=== PATIENT | female | born 1945 | race Caucasian/White ===

== ENCOUNTER 2018-06-26 13:19 | Inpatient (IN) | payer BC ==
[~2018-06-26] VITALS: Ht 167.6 cm; Wt 122.5 kg
[~2018-06-26 13:19] MED LIST: NOR10 PO
[2018-06-26 13:47] VITALS: BP_SYST 153
[2018-06-26 14:20] LABS: HEMATOCRIT 40.5 % (36-48); HEMOGLOBIN 13.2 g/dL (12.0-16.0); LYMPHOCYTES % (AUTO) 15.5 % (20.5-51.5); MEAN CORPUSCULAR HEMOGLOBIN 29 pg (27-31); MEAN CORPUSCULAR HGB CONC 33 % (32-36); MEAN CORPUSCULAR VOLUME 90 fL (79.0-98.0); MONOCYTES % (AUTO) 8.1 % (1.7-9.3); NEUTROPHILS % (AUTO) 73.3 % (40.0-70.0); PLATELET COUNT (AUTO) 231 K/uL (130-430); RED BLOOD CELL COUNT(AUTO) 4.52 MIL/uL (4.2-6.2); RED CELL DISTRIBUTION WIDTH 14.2 % (9.0-15.0); WHITE BLOOD COUNT (AUTO) 8.8 K/uL (4.8-10.8)
[2018-06-26 14:21] LABS: BASOPHILS # (AUTO) 0.1 K/uL (0.0-0.2); BASOPHILS % (AUTO) 0.7 % (0.0-2.0); EOSINOPHILS # (AUTO) 0.2 K/uL (0.0-0.4); EOSINOPHILS % (AUTO) 2.4 % (0.0-4.0); LYMPHOCYTES # (AUTO) 1.4 K/uL (1.0-5.5); MONOCYTES # (AUTO) 0.7 K/uL (0.0-1.0); NEUTROPHILS # (AUTO) 6.5 K/uL (1.8-7.7)
[2018-06-26 14:28] LABS: ANION GAP 8 (5-15); CALCIUM 8.7 mg/dL (8.4-11.0); CHLORIDE 90 mmol/L (98-107); CREATININE 1.75 mg/dL (0.55-1.30); SODIUM SERUM 124 mmol/L (136-145); UREA NITROGEN, BLOOD 29 mg/dL (8-21)
[2018-06-26 14:29] LABS: ALANINE AMINOTRANSFERASE 29 U/L (12-78); ALBUMIN 3.4 g/dL (3.4-4.8); ASPARTATE AMINOTRANSFERASE 19 U/L (10-37); PROTHROMBIN TIME 10.1 SECS (9.5-12.5); TOTAL BILIRUBIN 0.4 mg/dL (0.0-1.0)
[2018-06-26 14:32] LABS: POTASSIUM 5.8 mmol/L (3.5-5.1)
[2018-06-26 14:33] LABS: GLUCOSE 705 mg/dL (70-99)
--- NOTE | 2018-06-26 15:00 | NUR ---
Patient to ER bed 06 to gown for evaluation. Side rails up.
--- NOTE | 2018-06-26 15:05 | NUR ---
Pt brought by self,A&Ox4, pt presents to ER with vaginal bleeding , pt states she felt at the gym few days ago and started to notice blood in the urine/ vaginal are after, pt respirations even and unlabored, cap refill <3, skin pink and warm.
--- NOTE | 2018-06-26 15:08 | NUR ---
Pt notified of blood results per Dr Frederick,BS result 705 under BMP, per patient she is not diabetic, Per Dr Frederick labs will be repeated.
--- NOTE | 2018-06-26 15:10 | NUR ---
Dr Frederick at bedside examining patient
[2018-06-26 16:12] LABS: ANION GAP 10 (5-15); CALCIUM 8.7 mg/dL (8.4-11.0); CHLORIDE 90 mmol/L (98-107); CREATININE 1.69 mg/dL (0.55-1.30); POTASSIUM 5.3 mmol/L (3.5-5.1); SODIUM SERUM 122 mmol/L (136-145); UREA NITROGEN, BLOOD 29 mg/dL (8-21)
[2018-06-26 16:15] LABS: GLUCOSE 659 mg/dL (70-99)
[2018-06-26] MEDS ORDERED: NACL 0.9% 1,000 ML IV ONE (16:15)
--- NOTE | 2018-06-26 16:15 | NUR ---
Pt medicated for elevated potassium and glucose.
[2018-06-26] MEDS ORDERED: SODIUM POLYSTYRENE SULFONATE 15 GM/60 ML UDBTL PO ONE (16:30)
[2018-06-26] MEDS ORDERED: INSULIN REGULAR, HUMAN 10 UNITS/0.1 ML INJ IVP ONE (17:00)
--- NOTE | 2018-06-26 17:55 | NUR ---
BS 429 after IVP insulin.
--- NOTE | 2018-06-26 18:12 | NUR ---
ADMISSION NOTE Received patient from ER via artem, received report from FRANCE PRATHER. Patient admitted with diagnosis of HYPERGLYCEMIA/HEMATURIA. Patient oriented to hospital routine, call light, toileting and safety-patient verbalized understanding.
--- NOTE | 2018-06-26 18:15 | NUR ---
Patient will be admitted to care of . Admitted to Telemetry unit. Will go to room 103B. Summary report printed. Report will be given at bedside.
[2018-06-26 18:26] VITALS: BP_SYST 148
--- NOTE | 2018-06-26 18:44 | NUR ---
Mobility Ambulate to bathroom with steady gait, no dizziness, fall/safety precaution initiated, bed alarm , dinner served.
--- NOTE | 2018-06-26 18:47 | NUR ---
Initial Note: Received patient from ADN. Patient in bed eating dinner. Patient A/O x4. Patient denies pain and discomfort at this time. Breathing is even and unlabored with no distress noted. Palpable peripheral pulses. Patient ambulatory with steady gait. PERRLA present. Clear breath sounds on auscultation. No edema noted. Bowel sounds present. IV patent and intact and saline locked, no signs of infiltration noted. Safety precautions in place; bed in lowest position, wheels locked, side rails x3, and call light within reach. All current needs met. Will endorse plan of care to NOC, nurse.
[2018-06-26 20:00] VITALS: BP_SYST 106
--- NOTE | 2018-06-26 20:00 | NUR ---
Opening notes Pt AAOx4, VSS, no s/s distress noted. Pt denies any pain at this time. Pt denies any hematuria. IV saline lock L hand 22G clear, patent. SR on the monitor. Encouraged pt to call for assistance, verb understanding. Call light within reach, bed alarm on. To monitor.
[2018-06-26] MEDS: INSULIN REGULAR, HUMAN 100 UNITS/ML, 10 ML VIAL (humuLIN R) SUBCUT PRN (21:16)
--- NOTE | 2018-06-26 21:18 | NUR ---
Glucose 408 Blood sugar checked 408, 12 units Regular insulin administered and Dr. Rowland paged per protocol. Awaiting callback.
--- NOTE | 2018-06-26 21:19 | NUR ---
PAGED I PAGED DR HERRERA @ [phone] I SPOKE WITH BRIANNE LISA
--- NOTE | 2018-06-26 22:19 | NUR ---
DR. HERRERA SHE CALLED BACK @ [phone]
[2018-06-26] MEDS ORDERED: HYDROcodone/ACETAMIN 10-325 MG TAB PO PRN (23:00)
[2018-06-26] MEDS ORDERED: HYDROcodone/ACETAMIN 5-325 MG TAB (NORCO/ VICODIN) PO PRN (23:00)
[2018-06-26] MEDS ORDERED: ALBUTEROL SULFATE 0.083% 2.5 MG/3 ML VIAL.NEB INH PRN (23:00)
[2018-06-26] MEDS ORDERED: ONDANSETRON HCL 4 MG/2 ML VIAL IVP PRN (23:00)
[2018-06-27 00:03] VITALS: BP_SYST 106
--- NOTE | 2018-06-27 00:25 | NUR ---
Ambulate to bathroom Assisted pt to the bathroom, pt denies SOB or dizziness. Noted urine with nickel size blood clot, pt also had a small BM. UA sent to lab.
[2018-06-27] MEDS: NACL 0.9% 1,000 ML IV SCH ×2 (00:40→11:52)
--- NOTE | 2018-06-27 00:50 | NUR ---
IV fluids IV fluids started per MD order L. hand 22G clear, patent. Pt c/o stiffness on the legs. 1+ edema noted. Encouraged pt to call for assistance to commode/bathroom. Pt verb understanding. Perry SCDs placed. Bed alarm on. Call light within reach. To monitor.
[2018-06-27 00:54] LABS: BILIRUBIN,URINE NEGATIVE (NEGATIVE); BLOOD, URINE 3+ (NEGATIVE); CLARITY/URINE SL HAZY (CLEAR); COLOR,URINE YELLOW (YELLOW); GLUCOSE,URINE 3+ (NEGATIVE); KETONES,URINE 1+ (NEGATIVE); LEUKOCYTE ESTERASE ,URINE NEGATIVE (NEGATIVE); NITRITE, URINE NEGATIVE (NEGATIVE); PH,URINE 5.5 (5.0-8.0); PROTEIN URINE NEGATIVE (NEGATIVE); UROBILINOGEN,URINE 0.2 (0.2-1.0)
[2018-06-27 01:19] LABS: BACTERIA,URINE FEW /HPF (None Seen); RBC,URINE 80-100 /HPF (0-3); WBC,URINE 0-3 /HPF (0-3)
--- NOTE | 2018-06-27 02:20 | NUR ---
Rounds Pt asleep. No s/s distress or discomfort noted. IVF infusing as ordered. Call light, bed alarm on. To monitor.
[2018-06-27 03:06] VITALS: BP_SYST 116
--- NOTE | 2018-06-27 04:45 | NUR ---
Rounds Pt asleep, easily arousable. No c/o discomfort. IVF infusing as ordered L. hand no s/s infiltration. Perry scds on. Bed low, locked, alarm on. Fall precaution in place. call light within reach. to monitor.
[2018-06-27] MEDS: INSULIN REGULAR, HUMAN 100 UNITS/ML, 10 ML VIAL (humuLIN R) SUBCUT PRN ×4 (06:32→20:46)
--- NOTE | 2018-06-27 06:35 | NUR ---
Closing notes/Blood sugar 260 Pt alert, awake, no s/s distress noted. Pt's son visiting at bedside. IVF infusing as ordered L. hand 22G no s/s infiltration. BS checked 260 6 units Reg insulin administered per ss protocol. Educated pt to report any signs and symptoms of hypoglycemia (ie: sweating, light headedness, confusion). Pt verbalized understanding. Fall precaution in place. Call light within reach. To endorse to dayshift nurse.
--- NOTE | 2018-06-27 07:35 | NUR ---
Opening Note: Patient in bed resting. Patient denies pain and discomfort at this time. Breathing is even and unlabored with no distress noted. IV patent and intact running IV fluids per MD orders, no signs of infiltration noted. Safety precautions in place; bed in lowest position, wheels locked, side rails x3, and call light within reach. No needs at this time. Will continue to monitor.
[2018-06-27 07:38] LABS: ANION GAP 11 (5-15); CHLORIDE 99 mmol/L (98-107); CREATININE 1.18 mg/dL (0.55-1.30); GLUCOSE 251 mg/dL (70-99); POTASSIUM 3.7 mmol/L (3.5-5.1); SODIUM SERUM 134 mmol/L (136-145); UREA NITROGEN, BLOOD 21 mg/dL (8-21)
[2018-06-27 07:47] LABS: ALANINE AMINOTRANSFERASE 26 U/L (12-78); ALBUMIN 2.7 g/dL (3.4-4.8); ASPARTATE AMINOTRANSFERASE 20 U/L (10-37); TOTAL BILIRUBIN 0.4 mg/dL (0.0-1.0)
[2018-06-27 07:55] LABS: HEMATOCRIT 36.3 % (36-48); HEMOGLOBIN 12.2 g/dL (12.0-16.0); MEAN CORPUSCULAR HEMOGLOBIN 29 pg (27-31); MEAN CORPUSCULAR HGB CONC 34 % (32-36); MEAN CORPUSCULAR VOLUME 87 fL (79.0-98.0); PLATELET COUNT (AUTO) 209 K/uL (130-430); RED BLOOD CELL COUNT(AUTO) 4.19 MIL/uL (4.2-6.2); RED CELL DISTRIBUTION WIDTH 14.4 % (9.0-15.0); WHITE BLOOD COUNT (AUTO) 7.5 K/uL (4.8-10.8)
[2018-06-27 07:56] LABS: BASOPHILS % (AUTO) 0.7 % (0.0-2.0); EOSINOPHILS # (AUTO) 0.4 K/uL (0.0-0.4); EOSINOPHILS % (AUTO) 4.8 % (0.0-4.0); LYMPHOCYTES # (AUTO) 2.1 K/uL (1.0-5.5); LYMPHOCYTES % (AUTO) 27.4 % (20.5-51.5); MONOCYTES # (AUTO) 0.7 K/uL (0.0-1.0); NEUTROPHILS # (AUTO) 4.4 K/uL (1.8-7.7); NEUTROPHILS % (AUTO) 58.1 % (40.0-70.0)
[2018-06-27 08:16] VITALS: BP_SYST 137
[2018-06-27] MEDS: amLODIPine BESYLATE 10 MG TABLET PO SCH (08:23)
[2018-06-27 11:23] VITALS: BP_SYST 141
--- NOTE | 2018-06-27 13:48 | NUR ---
Accucheck: Blood sugar 299, covered with 6 units Novolin R per sliding scale, see eMAR. Addendum: 06/27/18 at 1349 by Demetra Stuart RN Late note for 1155 secondary to patient care.
[2018-06-27 15:22] VITALS: BP_SYST 139
--- NOTE | 2018-06-27 16:00 | NUR ---
Rounds: Patient in bed resting. Patient denies pain and discomfort. Breathing is even and unlabored with no distress noted. IVF running with no signs of infiltration. No needs at this time. Safety precautions in place. Will continue to monitor.
--- NOTE | 2018-06-27 16:06 | NUR ---
Dietitian Recommendations Continue [facility] diet as prescribed Please refer to Nutrition Assessment for details. Tushar Carr MPH, RD
--- NOTE | 2018-06-27 17:15 | NUR ---
Accucheck: Blood sugar 289, covered with 6 units Novolin R per sliding scale, see eMAR.
--- NOTE | 2018-06-27 18:20 | NUR ---
Closing Note: Patient in bed sitting up eating dinner. Patient denies pain and discomfort at this time. Breathing is even and unlabored with no distress noted. IV patent and intact running IV fluids per MD orders, no signs of infiltration noted. Safety precautions in place; bed in lowest position, wheels locked, side rails x3, and call light within reach. All needs met. Will endorse plan of care to NOC, nurse.
--- NOTE | 2018-06-27 19:30 | NUR ---
ROUNDS PATIENT RESTING COMFORTABLY IN BED, NOT IN DISTRESS, VITALS STABLE. DENIES ANY PAIN AND DISCOMFORT AT THIS TIME. ASSESSMENT DONE AND DOCUMENTED. SEE FLOWSHEET. IVF WITH NS INFUSING WELL AT 75 ML/HR, IV SITE PATENT ON THE LEFT HAND G. 22. NEEDS ATTENDED TO. SAFETY AND FALL PRECAUTION MEASURES IN PLACED. BED IN LOW AND LOCKED POSITION. BED ALARM ON. CALL LIGHT PLACED WITHIN REACH.
[2018-06-27 19:58] VITALS: BP_SYST 140
--- NOTE | 2018-06-27 21:00 | NUR ---
ACCU CHECK ACCU CHECK DONE, BLOOD SUGAR 333 WITH REGULAR INSULIN 8 UNITS GIVEN ORDERED PER SLIDING SCALE. WILL CONTINUE TO MONITOR.
--- NOTE | 2018-06-28 00:12 | NUR ---
PATIENT RESTING: Patient resting quietly. No acute distress noted. Vital signs within normal range.
[2018-06-28 00:39] VITALS: BP_SYST 135
[2018-06-28] MEDS: NACL 0.9% 1,000 ML IV SCH (02:11)
--- NOTE | 2018-06-28 02:13 | NUR ---
ROUNDS PATIENT ASLEEP, NO SOB NOR PAIN AND DISCOMFORT NOTED, VITALS STABLE. WILL CONTINUE TO MONITOR.
--- NOTE | 2018-06-28 04:10 | NUR ---
PATIENT RESTING: Patient resting quietly. No acute distress noted. Vital signs within normal range.
[2018-06-28] MEDS: INSULIN REGULAR, HUMAN 100 UNITS/ML, 10 ML VIAL (humuLIN R) SUBCUT PRN ×2 (05:52→11:39)
--- NOTE | 2018-06-28 06:23 | NUR ---
CLOSING NOTES PATIENT AWAKE, ACCU CHECK DONE WITH BLOOD SUGAR OF 266. REGULAR INSULIN 6 UNITS GIVEN SUBCU ORDERED PER SLIDING SCALE. ALL NEEDS ATTENDED TO. CALL LIGHT PLACED WITHIN REACH.
--- NOTE | 2018-06-28 07:40 | NUR ---
OPENING NOTE Patient resting in the bed comfortable. No acute distress. AAO x 4. Denied of pain. Skin warm and dry to touch. IV intact to left hand, no redness, no swelling, no drainage. On NS at 75ml/hr, infusing well. Discussed the safety issue, use call light when needs help, and plan of care, verbally understanding. Safety measure maintained. Bed locked in low position, side rails up, bed alarm on. Call light within reached. Will continue to monitor.
[2018-06-28 07:55] VITALS: BP_SYST 141
--- NOTE | 2018-06-28 08:20 | NUR ---
DISCHARGE HOME Seen and examined by Jose Barry with order of discharge home and follow up with TUB RIDER in 2 weeks. Patient make aware, and verbally understanding.
[2018-06-28] MEDS: amLODIPine BESYLATE 10 MG TABLET PO SCH (08:45)
--- NOTE | 2018-06-28 08:50 | NUR ---
EDUCATION OF DIABETES Educated the s/s of hyperglycemia/hypoglycemia, the diet and new medication of Metformin, the indication and possible side effect, verbally understanding. Instructed to patient needs to follow up with her primary physician, for her new onset of diabetes, verbally understanding.
--- NOTE | 2018-06-28 09:15 | NUR ---
AMBULATED IN THE HALLWAY Ambulated patient in the hallway. Able to ambulate in steady and walked the whole unit without problem or distress.
--- NOTE | 2018-06-28 10:12 | NUR ---
RECEIVED THE CALL FROM PATIENT'S SON Received the call from patient's son, Juan Carlos and stated that he is coming to picker box operator the patient to go home.
[2018-06-28 10:25] VITALS: BP_SYST 152
[2018-06-28] MEDS ORDERED: GLU500 PO (10:40)
--- NOTE | 2018-06-28 11:36 | NUR ---
Blood sugar check training Patient was instructed with return demonstration on how to do accucheck. Son and daughter at the bedside. All present verbalized understanding
[2018-06-28 12:27] VITALS: BP_SYST 152
--- NOTE | 2018-06-28 12:50 | NUR ---
D/C Patient Patient given medication reconciliation form and D/C instructions. Exit Care provided. Patient verbalized understanding. MD discussed with patient the results and treatment provided. Ambulatory with steady gait for discharge to home. Patient in stable condition, ID band removed. IV catheter removed, intact and dressing applied, no active bleeding. Rx of Metformin given. Patient educated on blood sugar check, s/s of hypo/hyperglycemia. follow up with HYDRO PLANT OPERATOR in 2 weeks, follow up with primary physician, verbally understanding. All belongings sent with patient.
--- NOTE | 2018-06-28 15:22 | NUR ---
Discharge TRINIDAD Caldera from HCP Case Management , Su stated that HCP will arrange for patient to attend class and will be given a glucometer during class. HCP also will make the appointments for the patient's follow up with PCP and STRATEGIC ADVISOR
--- NOTE | 2018-06-28 18:03 | NUR ---
CM IP DC Summary v2* Last Saved By: Verenice Philip Last Saved On: 06/28/2018 6:03 PM (PT) Created By: Verenice Philip Created On: 06/28/2018 6:03 PM (PT) Patient Information Patient Name: OLIVIER JEFF Address: [address] [place] [address] SSN: : 1945 (age 72 years) Work Phone: [phone] Gender: Female Alternative Phone: Marital Status: Other DC Information Date Patient was discharged 06/28/2018 12:00 AM (PT) DC location home? Answers: Yes Contact Method Answers: Face to Face Is patient agreeable to discharge plan: Answers: Yes Discharge Diagnosis: Vaginal bleeding.New onset diabetes.Renal failure, most likely from volume depletion. Post Discharge Services: Answers: Home Notes: patient discharge home, will receive call from Health Enhancement team, since she is newly diagnosed diabetic. Patient will also need to follow up with absorption operator Post Discharge PCP and Specialty appointments: follow up with pcp follow up with absorption operator [facility] program Post DC Follow-up appointments in patient's hand at time of DC? Answers: No Notes: IPC will call with appt time & date Family Notified of Discharge: Answers: No- Why Discharge Medications Review completed: Answers: Yes Education provided to patient Answers: Importance of PCP visit reviewed Educated on post-hospitalization call within 3 days of discharge Educated to bring all medications/DC instructions to first follow up appointment Re-educated on S/S to call PCP Educated patient/CG that HCP is available 14/11 Provided Urgent Care Facilities to patient Reviewed importance of Post DC visits and purpose: to review medications Reviewed importance of Post DC visits and purpose: to reduce chances of having to return to hospital Reviewed importance of Post DC visits and purpose: to check on progress since hospital discharge Is patient willing to have an Outpatient Care Communications Executive call at home to discuss their treatment plan: Answers: Yes What is the best time to call patient? Answers: No Preferred TIme Signature Signature: Signature Date Signed: 06/28/2018 6:03 PM (PT) Signed By: Verenice Philip Position: Pager Number: [facility] Generated (Scan) Page 1 of Copyright � 2019 [employer]. [Production([id number])]
--- NOTE | 2018-07-04 09:30 | NUR ---
DISCHARGE FOLLOW UP PHONE CALL: CASING CREW and FLORIST'S DECORATOR phoned pt on 07/02, 07/03, and 07/04/18. On 07/02, CASING CREW left a voice mail for a call back, and on 07/03 and 07/04, CASING CREW and FLORIST'S DECORATOR were unable to contact pt, and no voicemail option. No further follow up call needed.
== END 2018-06-28 12:50 | disposition home or self-care (01) | DRG 683 ==
LOC: SED 13:19 → STU 17:15
PROVIDERS: ADMIT Internal Medicine; ATTEND Internal Medicine
DX: N17.9 Acute kidney failure, unspecified (principal); E87.1 Hypo-osmolality and hyponatremia; N93.9 Abnormal uterine and vaginal bleeding, unspecified; E11.65 Type 2 diabetes mellitus with hyperglycemia; E87.5 Hyperkalemia; E86.0 Dehydration; I10 Essential (primary) hypertension; W18.39XA Other fall on same level, initial encounter; Z90.5 Acquired absence of kidney; Z82.49 Family history of ischemic heart disease and other diseases of the circulatory system; Y93.89 Activity, other specified; Y92.89 Other specified places as the place of occurrence of the external cause; Y99.8 Other external cause status
CPT/HCPCS: 36415; 76770; 76856-TC; 80048; 80053; 81000-TC; 82962; 83036; 85025; 85610-TC; 85730-TC; 90656; 96361; 96374; 99285; G0378; J1815; J7030

== ENCOUNTER 2018-08-29 16:23 | Emergency (ER) | payer BC ==
[~2018-08-29] VITALS: Ht 167.6 cm; Wt 104.3 kg
[~2018-08-29 16:23] MED LIST changes: +GLU500 PO
[2018-08-29 16:35] VITALS: BP_SYST 174
[2018-08-29] MEDS ORDERED: NACL 0.9% 1,000 ML IV ONE ×2 (17:00→18:15)
[2018-08-29 17:45] LABS: BASOPHILS # (AUTO) 0.1 K/uL (0.0-0.2); BASOPHILS % (AUTO) 1.1 % (0.0-2.0); EOSINOPHILS # (AUTO) 0.3 K/uL (0.0-0.4); EOSINOPHILS % (AUTO) 3.2 % (0.0-4.0); HEMOGLOBIN 13.4 g/dL (12.0-16.0); LYMPHOCYTES # (AUTO) 2.1 K/uL (1.0-5.5); LYMPHOCYTES % (AUTO) 24.7 % (20.5-51.5); MEAN CORPUSCULAR HEMOGLOBIN 30 pg (27-31); MEAN CORPUSCULAR HGB CONC 33 % (32-36); MEAN CORPUSCULAR VOLUME 89 fL (79.0-98.0); MONOCYTES # (AUTO) 0.7 K/uL (0.0-1.0); MONOCYTES % (AUTO) 7.8 % (1.7-9.3); NEUTROPHILS # (AUTO) 5.4 K/uL (1.8-7.7); NEUTROPHILS % (AUTO) 63.2 % (40.0-70.0); PLATELET COUNT (AUTO) 270 K/uL (130-430); RED BLOOD CELL COUNT(AUTO) 4.51 MIL/uL (4.2-6.2); RED CELL DISTRIBUTION WIDTH 13.6 % (9.0-15.0); WHITE BLOOD COUNT (AUTO) 8.5 K/uL (4.8-10.8)
[2018-08-29 18:01] LABS: ANION GAP 11 (5-15); CALCIUM 9.4 mg/dL (8.4-11.0); CHLORIDE 96 mmol/L (98-107); CREATININE 1.59 mg/dL (0.55-1.30); POTASSIUM 4.4 mmol/L (3.5-5.1); SODIUM SERUM 129 mmol/L (136-145); UREA NITROGEN, BLOOD 19 mg/dL (8-21)
[2018-08-29 18:07] LABS: GLUCOSE 480 mg/dL (70-99)
[2018-08-29 18:08] LABS: PROTHROMBIN TIME 9.9 SECS (9.5-12.5)
[2018-08-29 18:09] LABS: ALANINE AMINOTRANSFERASE 32 U/L (12-78); ALBUMIN 3.3 g/dL (3.4-4.8); ASPARTATE AMINOTRANSFERASE 22 U/L (10-37); TOTAL BILIRUBIN 0.5 mg/dL (0.0-1.0)
[2018-08-29] MEDS ORDERED: INSULIN REGULAR, HUMAN 10 UNITS/0.1 ML INJ IVP ONE (18:15)
[2018-08-29 18:42] LABS: BILIRUBIN,URINE NEGATIVE (NEGATIVE); BLOOD, URINE NEGATIVE (NEGATIVE); CLARITY/URINE SL HAZY (CLEAR); COLOR,URINE YELLOW (YELLOW); GLUCOSE,URINE 3+ (NEGATIVE); KETONES,URINE TRACE (NEGATIVE); LEUKOCYTE ESTERASE ,URINE NEGATIVE (NEGATIVE); NITRITE, URINE POSITIVE (NEGATIVE); PH,URINE 5.5 (5.0-8.0); PROTEIN URINE NEGATIVE (NEGATIVE); UROBILINOGEN,URINE 0.2 (0.2-1.0)
[2018-08-29 18:49] LABS: BACTERIA,URINE MANY /HPF (None Seen); MUCUS,URINE None Seen /LPF (None Seen); RBC,URINE NONE SEEN /HPF (0-3)
[2018-08-29] MEDS ORDERED: LEVOFLOXACIN 500 MG TABLET PO ONE (19:00)
[2018-08-29 19:39] VITALS: BP_SYST 156
== END 2018-08-29 19:39 | disposition home or self-care (01) ==
LOC: SED 16:23
DX: E11.65 Type 2 diabetes mellitus with hyperglycemia (principal); N39.0 Urinary tract infection, site not specified; I10 Essential (primary) hypertension; Z98.51 Tubal ligation status; Z79.899 Other long term (current) drug therapy
CPT/HCPCS: 36415; 71045; 80053; 81000; 82962; 83605; 84484; 85025; 85610; 85730; 87040; 87086; 87186; 93005; 96361; 96374; 99284; J1815; J7030

== ENCOUNTER 2018-09-05 15:15 | Inpatient (IN) | payer BC ==
[~2018-09-05] VITALS: Ht 167.6 cm; Wt 104.3 kg
[2018-09-05 15:22] VITALS: BP_SYST 213
[2018-09-05] MEDS ORDERED: INSULIN REGULAR, HUMAN 10 UNITS/0.1 ML INJ SUBCUT ONE (15:45)
[2018-09-05] MEDS ORDERED: NACL 0.9% 1,000 ML IV ONE ×2 (15:45→19:00)
[2018-09-05 16:00] LABS: BASOPHILS # (AUTO) 0.1 K/uL (0.0-0.2); BASOPHILS % (AUTO) 0.9 % (0.0-2.0); EOSINOPHILS # (AUTO) 0.2 K/uL (0.0-0.4); EOSINOPHILS % (AUTO) 2.7 % (0.0-4.0); HEMATOCRIT 39.5 % (36-48); HEMOGLOBIN 13.2 g/dL (12.0-16.0); LYMPHOCYTES # (AUTO) 1.8 K/uL (1.0-5.5); LYMPHOCYTES % (AUTO) 22.3 % (20.5-51.5); MEAN CORPUSCULAR HEMOGLOBIN 30 pg (27-31); MEAN CORPUSCULAR HGB CONC 34 % (32-36); MEAN CORPUSCULAR VOLUME 90 fL (79.0-98.0); MONOCYTES # (AUTO) 0.8 K/uL (0.0-1.0); MONOCYTES % (AUTO) 9.5 % (1.7-9.3); NEUTROPHILS # (AUTO) 5.1 K/uL (1.8-7.7); NEUTROPHILS % (AUTO) 64.6 % (40.0-70.0); PLATELET COUNT (AUTO) 251 K/uL (130-430); RED BLOOD CELL COUNT(AUTO) 4.39 MIL/uL (4.2-6.2); RED CELL DISTRIBUTION WIDTH 13.7 % (9.0-15.0)
[2018-09-05 16:11] LABS: ANION GAP 9 (5-15); CHLORIDE 95 mmol/L (98-107); CREATININE 1.59 mg/dL (0.55-1.30); POTASSIUM 4.8 mmol/L (3.5-5.1); SODIUM SERUM 128 mmol/L (136-145); UREA NITROGEN, BLOOD 25 mg/dL (8-21)
[2018-09-05 16:18] LABS: ACETONE, SERUM NEGATIVE (NEGATIVE)
[2018-09-05 16:20] LABS: ALANINE AMINOTRANSFERASE 32 U/L (12-78); ALBUMIN 3.2 g/dL (3.4-4.8); ASPARTATE AMINOTRANSFERASE 24 U/L (10-37); TOTAL BILIRUBIN 0.3 mg/dL (0.0-1.0)
[2018-09-05 16:23] LABS: GLUCOSE 611 mg/dL (70-99)
[2018-09-05 16:40] LABS: BILIRUBIN,URINE NEGATIVE (NEGATIVE); BLOOD, URINE NEGATIVE (NEGATIVE); CLARITY/URINE CLEAR (CLEAR); COLOR,URINE YELLOW (YELLOW); GLUCOSE,URINE 3+ (NEGATIVE); KETONES,URINE TRACE (NEGATIVE); LEUKOCYTE ESTERASE ,URINE NEGATIVE (NEGATIVE); NITRITE, URINE NEGATIVE (NEGATIVE); PH,URINE 6.5 (5.0-8.0); PROTEIN URINE NEGATIVE (NEGATIVE); UROBILINOGEN,URINE 0.2 (0.2-1.0)
[2018-09-05 16:53] LABS: BACTERIA,URINE FEW /HPF (None Seen); RBC,URINE 0-3 /HPF (0-3); WBC,URINE 0-3 /HPF (0-3); YEAST,URINE Rare /HPF (None Seen)
[2018-09-05] MEDS ORDERED: POTASSIUM CHLORIDE 20 MEQ/PKT PACKET PO ONE (18:00)
[2018-09-05] MEDS ORDERED: INSULIN REGULAR, HUMAN 10 UNITS/0.1 ML INJ IVP ONE (18:00)
[2018-09-05] MEDS ORDERED: NITR-85 PO (19:40)
[2018-09-05 20:00] VITALS: BP_SYST 127
[2018-09-05 20:33] VITALS: BP_SYST 127
[2018-09-06] MEDS ORDERED: INSULIN REGULAR, HUMAN 100 UNITS/ML, 10 ML VIAL (novoLIN R) SUBCUT PRN
[2018-09-06] MEDS ORDERED: ONDANSETRON HCL 4 MG/2 ML VIAL IVP PRN
[2018-09-06] MEDS ORDERED: ALBUTEROL SULFATE 0.083% 2.5 MG/3 ML VIAL.NEB INH PRN
[2018-09-06] MEDS ORDERED: HYDROcodone/ACETAMIN 5-325 MG TAB (NORCO/ VICODIN) PO PRN
[2018-09-06] MEDS ORDERED: cefTRIAXone 1 GM in D5W 50 ML IV SCH ×2
[2018-09-06] MEDS ORDERED: HYDROcodone/ACETAMIN 10-325 MG TAB PO PRN
[2018-09-06] MEDS ORDERED: NACL 0.9% 1,000 ML IV SCH (01:00)
[2018-09-06] MEDS ORDERED: cefTRIAXone 1 GM IVPB PREMIX 50 ML IV ONE (01:23)
[2018-09-06 03:17] VITALS: BP_SYST 127
[2018-09-06 06:42] LABS: BASOPHILS # (AUTO) 0.1 K/uL (0.0-0.2); BASOPHILS % (AUTO) 0.9 % (0.0-2.0); EOSINOPHILS # (AUTO) 0.4 K/uL (0.0-0.4); EOSINOPHILS % (AUTO) 4.6 % (0.0-4.0); HEMATOCRIT 37.4 % (36-48); HEMOGLOBIN 12.5 g/dL (12.0-16.0); LYMPHOCYTES # (AUTO) 2.5 K/uL (1.0-5.5); LYMPHOCYTES % (AUTO) 29.9 % (20.5-51.5); MEAN CORPUSCULAR HEMOGLOBIN 29 pg (27-31); MEAN CORPUSCULAR HGB CONC 33 % (32-36); MEAN CORPUSCULAR VOLUME 88 fL (79.0-98.0); MONOCYTES # (AUTO) 0.8 K/uL (0.0-1.0); MONOCYTES % (AUTO) 9.5 % (1.7-9.3); NEUTROPHILS # (AUTO) 4.6 K/uL (1.8-7.7); NEUTROPHILS % (AUTO) 55.1 % (40.0-70.0); PLATELET COUNT (AUTO) 246 K/uL (130-430); RED BLOOD CELL COUNT(AUTO) 4.25 MIL/uL (4.2-6.2); RED CELL DISTRIBUTION WIDTH 13.6 % (9.0-15.0); WHITE BLOOD COUNT (AUTO) 8.3 K/uL (4.8-10.8)
[2018-09-06 06:58] LABS: ANION GAP 10 (5-15); CALCIUM 8.6 mg/dL (8.4-11.0); CHLORIDE 102 mmol/L (98-107); CREATININE 1.17 mg/dL (0.55-1.30); GLUCOSE 192 mg/dL (70-99); SODIUM SERUM 136 mmol/L (136-145); UREA NITROGEN, BLOOD 19 mg/dL (8-21)
[2018-09-06 07:12] LABS: ALANINE AMINOTRANSFERASE 25 U/L (12-78); ALBUMIN 2.8 g/dL (3.4-4.8); ASPARTATE AMINOTRANSFERASE 19 U/L (10-37); TOTAL BILIRUBIN 0.3 mg/dL (0.0-1.0)
[2018-09-06 08:00] VITALS: BP_SYST 145
[2018-09-06] MEDS ORDERED: metFORMIN HCL 500 MG TABLET PO SCH (08:00)
[2018-09-06] MEDS ORDERED: amLODIPine BESYLATE 10 MG TABLET PO SCH (09:00)
[2018-09-06 10:48] VITALS: BP_SYST 145
== END 2018-09-06 11:26 | disposition home or self-care (01) | DRG 637 ==
LOC: SED 15:15 → SMU 19:25
PROVIDERS: ADMIT Internal Medicine; ATTEND Internal Medicine
DX: E11.65 Type 2 diabetes mellitus with hyperglycemia (principal); N17.0 Acute kidney failure with tubular necrosis; N39.0 Urinary tract infection, site not specified; D25.9 Leiomyoma of uterus, unspecified; N28.9 Disorder of kidney and ureter, unspecified; I10 Essential (primary) hypertension; Z83.3 Family history of diabetes mellitus; Z90.5 Acquired absence of kidney
CPT/HCPCS: 36415; 80053; 81000-TC; 82009-TC; 82962; 85025; 87086; 96361; 96372; 96374; 99285; J0696; J1815; J7030; J7060

== ENCOUNTER 2020-04-26 10:08 | Inpatient (IN) | payer BC, SELFPAY ==
[~2020-04-26] VITALS: Ht 167.6 cm; Wt 103.0 kg
[~2020-04-26 10:08] MED LIST changes: +NITR-85 PO
[2020-04-26 10:37] VITALS: BP_SYST 148
[2020-04-26 11:50] LABS: BASOPHILS % (AUTO) 0.3 % (0.0-2.0); EOSINOPHILS % (AUTO) 0.5 % (0.0-4.0); HEMATOCRIT 41.5 % (36-48); HEMOGLOBIN 14.2 g/dL (12.0-16.0); LYMPHOCYTES # (AUTO) 0.9 K/uL (1.0-5.5); LYMPHOCYTES % (AUTO) 9.4 % (20.5-51.5); MEAN CORPUSCULAR HEMOGLOBIN 29 pg (27-31); MEAN CORPUSCULAR HGB CONC 34 % (32-36); MEAN CORPUSCULAR VOLUME 85 fL (79.0-98.0); MONOCYTES % (AUTO) 10.8 % (1.7-9.3); NEUTROPHILS # (AUTO) 7.4 K/uL (1.8-7.7); PLATELET COUNT (AUTO) 462 K/uL (130-430); RED BLOOD CELL COUNT(AUTO) 4.87 MIL/uL (4.2-6.2); RED CELL DISTRIBUTION WIDTH 13.4 % (9.0-15.0); WHITE BLOOD COUNT (AUTO) 9.3 K/uL (4.8-10.8)
[2020-04-26 12:05] LABS: ANION GAP 10 (5-15); CALCIUM 8.2 mg/dL (8.4-11.0); CHLORIDE 95 mmol/L (98-107); CREATININE 1.42 mg/dL (0.55-1.30); GLUCOSE 247 mg/dL (70-99); POTASSIUM 4.1 mmol/L (3.5-5.1); SODIUM SERUM 130 mmol/L (136-145); UREA NITROGEN, BLOOD 17 mg/dL (8-21)
[2020-04-26 12:06] LABS: PROTHROMBIN TIME 10.4 SECS (9.5-12.5)
[2020-04-26 12:19] LABS: ALANINE AMINOTRANSFERASE 42 U/L (12-78); ALBUMIN 2.5 g/dL (3.4-4.8); ASPARTATE AMINOTRANSFERASE 59 U/L (10-37); LACTATE DEHYDROGENASE 412 U/L (81-234); TOTAL BILIRUBIN 0.4 mg/dL (0.0-1.0)
[2020-04-26] MEDS ORDERED: cefTRIAXone 1 GM in D5W 50 ML IV ONE (12:30)
[2020-04-26] MEDS ORDERED: DEXAMETHASONE SOD PHOSPHATE 10 MG/ML VIAL IVP ONE (12:30)
[2020-04-26] MEDS ORDERED: AZITHROMYCIN 500 MG in NS 250 ML IV ONE (12:30)
[2020-04-26 12:41] LABS: C-REACTIVE PROTEIN QUANT 17.3 mg/dL (0-0.5)
[2020-04-26] MEDS ORDERED: cefTRIAXone 1 GM VIAL ONE (12:43)
[2020-04-26 12:57] LABS: CKMB RELATIVE INDEX 1.4 (0.0-2.9); CREATINE KINASE MB 3.2 ng/mL (0-3.6)
[2020-04-26] MEDS ORDERED: AZITHROMYCIN 500 MG/VIAL (ZITHROMAX) IV ONE (13:25)
[2020-04-26] MEDS ORDERED: ENOXAPARIN SODIUM 40 MG/0.4 ML SYRINGE SUBCUT ONE (14:00)
[2020-04-26 14:18] LABS: BILIRUBIN,URINE NEGATIVE (NEGATIVE); BLOOD, URINE 1+ (NEGATIVE); CLARITY/URINE SL CLOUDY (CLEAR); GLUCOSE,URINE NEGATIVE (NEGATIVE); KETONES,URINE NEGATIVE (NEGATIVE); LEUKOCYTE ESTERASE ,URINE 1+ (NEGATIVE); NITRITE, URINE NEGATIVE (NEGATIVE); PH,URINE 5.5 (5.0-8.0); PROTEIN URINE NEGATIVE (NEGATIVE); UROBILINOGEN,URINE 0.2 (0.2-1.0)
[2020-04-26 14:22] LABS: COLOR,URINE STRAW (YELLOW)
[2020-04-26 14:43] LABS: BACTERIA,URINE MANY /HPF (None Seen)
[2020-04-26 16:15] VITALS: BP_SYST 152
[2020-04-26] MEDS: DEXAMETHASONE SOD PHOSPHATE 10 MG/ML VIAL IVP SCH (17:23)
[2020-04-26] MEDS: metFORMIN HCL 500 MG TABLET PO SCH (17:23)
[2020-04-26 20:00] VITALS: BP_SYST 148
[2020-04-26] MEDS: INSULIN LISPRO SLIDING SCALE 100 UNITS/ML VIAL (humaLOG) SUBCUT PRN (22:19)
[2020-04-27] VITALS: BP_SYST 135
[2020-04-27] MEDS: INSULIN LISPRO SLIDING SCALE 100 UNITS/ML VIAL (humaLOG) SUBCUT PRN ×5 (06:17→23:58)
[2020-04-27 08:00] VITALS: BP_SYST 164
[2020-04-27] MEDS: amLODIPine BESYLATE 10 MG TABLET PO SCH (08:56)
[2020-04-27] MEDS: metFORMIN HCL 500 MG TABLET PO SCH ×2 (08:56→16:55)
[2020-04-27] MEDS: CHOLECALCIFEROL (VITAMIN D3) 5,000 UNIT TABLET PO SCH (08:56)
[2020-04-27] MEDS: ASCORBIC ACID 500 MG TABLET PO SCH (08:56)
[2020-04-27] MEDS: ENOXAPARIN SODIUM 40 MG/0.4 ML SYRINGE SUBCUT SCH (08:57)
[2020-04-27 09:14] LABS: BASOPHILS % (AUTO) 0.3 % (0.0-2.0); EOSINOPHILS % (AUTO) 0.1 % (0.0-4.0); HEMATOCRIT 39.9 % (36-48); HEMOGLOBIN 13.5 g/dL (12.0-16.0); LYMPHOCYTES % (AUTO) 8.9 % (20.5-51.5); MEAN CORPUSCULAR HEMOGLOBIN 29 pg (27-31); MEAN CORPUSCULAR HGB CONC 34 % (32-36); MEAN CORPUSCULAR VOLUME 85 fL (79.0-98.0); MONOCYTES # (AUTO) 1.1 K/uL (0.0-1.0); MONOCYTES % (AUTO) 9.8 % (1.7-9.3); NEUTROPHILS # (AUTO) 8.7 K/uL (1.8-7.7); PLATELET COUNT (AUTO) 565 K/uL (130-430); RED CELL DISTRIBUTION WIDTH 13.6 % (9.0-15.0); WHITE BLOOD COUNT (AUTO) 10.7 K/uL (4.8-10.8)
[2020-04-27 09:33] LABS: ALANINE AMINOTRANSFERASE 45 U/L (12-78); ALBUMIN 2.3 g/dL (3.4-4.8); ANION GAP 11 (5-15); ASPARTATE AMINOTRANSFERASE 49 U/L (10-37); CALCIUM 8.2 mg/dL (8.4-11.0); CHLORIDE 96 mmol/L (98-107); CREATININE 1.38 mg/dL (0.55-1.30); GLUCOSE 371 mg/dL (70-99); PHOSPHORUS 2.1 mg/dL (2.7-4.5); POTASSIUM 4.7 mmol/L (3.5-5.1); SODIUM SERUM 130 mmol/L (136-145); TOTAL BILIRUBIN 0.3 mg/dL (0.0-1.0); UREA NITROGEN, BLOOD 22 mg/dL (8-21)
[2020-04-27 11:41] VITALS: BP_SYST 148
[2020-04-27 12:09] LABS: NEUTROPHILS % (AUTO) 80.9 % (40.0-70.0)
[2020-04-27] MEDS: cefTRIAXone 1 GM in D5W 50 ML IV SCH (15:10)
[2020-04-27] MEDS: DEXAMETHASONE SOD PHOSPHATE 10 MG/ML VIAL IVP SCH (15:10)
[2020-04-27] MEDS ORDERED: cefTRIAXone 1 GM in D5W 50 ML IV SCH (15:45)
[2020-04-27 16:00] VITALS: BP_SYST 145
[2020-04-27] MEDS ORDERED: AZITHROMYCIN 500 MG in NS 250 ML IV SCH (16:00)
[2020-04-27] MEDS: AZITHROMYCIN 500 MG in NS 250 ML IV SCH (16:55)
[2020-04-27 20:16] VITALS: BP_SYST 147
[2020-04-28 01:30] VITALS: BP_SYST 151
[2020-04-28 02:14] VITALS: BP_SYST 115
[2020-04-28] MEDS: INSULIN LISPRO SLIDING SCALE 100 UNITS/ML VIAL (humaLOG) SUBCUT PRN ×4 (07:16→21:00)
[2020-04-28 07:23] LABS: BASOPHILS # (AUTO) 0.1 K/uL (0.0-0.2); BASOPHILS % (AUTO) 0.4 % (0.0-2.0); HEMATOCRIT 39.9 % (36-48); HEMOGLOBIN 13.5 g/dL (12.0-16.0); LYMPHOCYTES % (AUTO) 7.6 % (20.5-51.5); MEAN CORPUSCULAR HEMOGLOBIN 29 pg (27-31); MEAN CORPUSCULAR HGB CONC 34 % (32-36); MEAN CORPUSCULAR VOLUME 85 fL (79.0-98.0); MONOCYTES # (AUTO) 1.3 K/uL (0.0-1.0); MONOCYTES % (AUTO) 9.6 % (1.7-9.3); NEUTROPHILS % (AUTO) 82.4 % (40.0-70.0); PLATELET COUNT (AUTO) 595 K/uL (130-430); RED BLOOD CELL COUNT(AUTO) 4.68 MIL/uL (4.2-6.2); RED CELL DISTRIBUTION WIDTH 13.8 % (9.0-15.0); WHITE BLOOD COUNT (AUTO) 13.4 K/uL (4.8-10.8)
[2020-04-28 07:28] LABS: ALANINE AMINOTRANSFERASE 50 U/L (12-78); ALBUMIN 2.3 g/dL (3.4-4.8); ANION GAP 7 (5-15); ASPARTATE AMINOTRANSFERASE 48 U/L (10-37); CALCIUM 8.3 mg/dL (8.4-11.0); CHLORIDE 98 mmol/L (98-107); CREATININE 1.36 mg/dL (0.55-1.30); GLUCOSE 282 mg/dL (70-99); POTASSIUM 5.2 mmol/L (3.5-5.1); SODIUM SERUM 131 mmol/L (136-145); TOTAL BILIRUBIN 0.2 mg/dL (0.0-1.0); UREA NITROGEN, BLOOD 25 mg/dL (8-21)
[2020-04-28 08:00] VITALS: BP_SYST 162
[2020-04-28] MEDS: amLODIPine BESYLATE 10 MG TABLET PO SCH (09:15)
[2020-04-28] MEDS: CHOLECALCIFEROL (VITAMIN D3) 5,000 UNIT TABLET PO SCH (09:15)
[2020-04-28] MEDS: metFORMIN HCL 500 MG TABLET PO SCH ×2 (09:15→18:07)
[2020-04-28] MEDS: ASCORBIC ACID 500 MG TABLET PO SCH (09:15)
[2020-04-28] MEDS: ENOXAPARIN SODIUM 40 MG/0.4 ML SYRINGE SUBCUT SCH (09:16)
[2020-04-28 10:46] LABS: C-REACTIVE PROTEIN QUANT 4.2 mg/dL (0-0.5)
[2020-04-28] MEDS: cefTRIAXone 1 GM in D5W 50 ML IV SCH (16:14)
[2020-04-28] MEDS: AZITHROMYCIN 500 MG in NS 250 ML IV SCH (18:07)
[2020-04-28] MEDS: DEXAMETHASONE SOD PHOSPHATE 10 MG/ML VIAL IVP SCH (18:07)
[2020-04-28 20:00] VITALS: BP_SYST 155
[2020-04-29 01:18] VITALS: BP_SYST 141
[2020-04-29] MEDS: INSULIN LISPRO SLIDING SCALE 100 UNITS/ML VIAL (humaLOG) SUBCUT PRN ×4 (07:35→23:01)
[2020-04-29 08:00] VITALS: BP_SYST 152
[2020-04-29] MEDS: metFORMIN HCL 500 MG TABLET PO SCH ×2 (08:00→17:50)
[2020-04-29] MEDS: ENOXAPARIN SODIUM 40 MG/0.4 ML SYRINGE SUBCUT SCH (09:00)
[2020-04-29] MEDS: CHOLECALCIFEROL (VITAMIN D3) 5,000 UNIT TABLET PO SCH (09:00)
[2020-04-29] MEDS: ASCORBIC ACID 500 MG TABLET PO SCH (09:00)
[2020-04-29] MEDS: amLODIPine BESYLATE 10 MG TABLET PO SCH (09:00)
[2020-04-29 11:34] VITALS: BP_SYST 152
[2020-04-29] MEDS: AZITHROMYCIN 500 MG in NS 250 ML IV SCH (15:00)
[2020-04-29 15:23] VITALS: BP_SYST 129
[2020-04-29] MEDS: cefTRIAXone 1 GM in D5W 50 ML IV SCH (15:38)
[2020-04-29 16:00] VITALS: BP_SYST 152
[2020-04-29] MEDS: DEXAMETHASONE SOD PHOSPHATE 10 MG/ML VIAL IVP SCH (16:00)
[2020-04-29 20:00] VITALS: BP_SYST 135
[2020-04-30 01:19] VITALS: BP_SYST 140
[2020-04-30] MEDS: INSULIN LISPRO SLIDING SCALE 100 UNITS/ML VIAL (humaLOG) SUBCUT PRN ×4 (07:00→22:11)
[2020-04-30 08:00] VITALS: BP_SYST 136
[2020-04-30] MEDS: ASCORBIC ACID 500 MG TABLET PO SCH (08:38)
[2020-04-30] MEDS: metFORMIN HCL 500 MG TABLET PO SCH ×2 (08:38→18:56)
[2020-04-30] MEDS: amLODIPine BESYLATE 10 MG TABLET PO SCH (08:38)
[2020-04-30] MEDS: CHOLECALCIFEROL (VITAMIN D3) 5,000 UNIT TABLET PO SCH (08:39)
[2020-04-30] MEDS: ENOXAPARIN SODIUM 40 MG/0.4 ML SYRINGE SUBCUT SCH (08:40)
[2020-04-30 12:13] VITALS: BP_SYST 132
[2020-04-30] MEDS: AZITHROMYCIN 500 MG in NS 250 ML IV SCH (16:00)
[2020-04-30] MEDS: cefTRIAXone 1 GM in D5W 50 ML IV SCH (16:01)
[2020-04-30 16:19] VITALS: BP_SYST 133
[2020-04-30] MEDS: DEXAMETHASONE SOD PHOSPHATE 10 MG/ML VIAL IVP SCH (16:26)
[2020-04-30 20:00] VITALS: BP_SYST 140
[2020-05-01] VITALS: BP_SYST 136
[2020-05-01] MEDS: INSULIN LISPRO SLIDING SCALE 100 UNITS/ML VIAL (humaLOG) SUBCUT PRN ×4 (06:06→21:49)
[2020-05-01 08:00] VITALS: BP_SYST 147
[2020-05-01] MEDS: metFORMIN HCL 500 MG TABLET PO SCH ×2 (09:19→18:17)
[2020-05-01] MEDS: amLODIPine BESYLATE 10 MG TABLET PO SCH (09:20)
[2020-05-01] MEDS: ASCORBIC ACID 500 MG TABLET PO SCH (09:20)
[2020-05-01] MEDS: CHOLECALCIFEROL (VITAMIN D3) 5,000 UNIT TABLET PO SCH (09:21)
[2020-05-01] MEDS: ENOXAPARIN SODIUM 40 MG/0.4 ML SYRINGE SUBCUT SCH (09:23)
[2020-05-01 12:29] VITALS: BP_SYST 135
[2020-05-01] MEDS: cefTRIAXone 1 GM in D5W 50 ML IV SCH (15:56)
[2020-05-01] MEDS: DEXAMETHASONE SOD PHOSPHATE 10 MG/ML VIAL IVP SCH (15:57)
[2020-05-01 20:00] VITALS: BP_SYST 141
[2020-05-02 05:27] VITALS: BP_SYST 144
[2020-05-02] MEDS: INSULIN LISPRO SLIDING SCALE 100 UNITS/ML VIAL (humaLOG) SUBCUT PRN ×4 (05:48→22:21)
[2020-05-02 08:00] VITALS: BP_SYST 145
[2020-05-02] MEDS: ASCORBIC ACID 500 MG TABLET PO SCH (08:56)
[2020-05-02] MEDS: metFORMIN HCL 500 MG TABLET PO SCH (08:56)
[2020-05-02] MEDS: CHOLECALCIFEROL (VITAMIN D3) 5,000 UNIT TABLET PO SCH (08:56)
[2020-05-02] MEDS: amLODIPine BESYLATE 10 MG TABLET PO SCH (08:56)
[2020-05-02 10:06] LABS: BASOPHILS # (AUTO) 0.1 K/uL (0.0-0.2); BASOPHILS % (AUTO) 0.6 % (0.0-2.0); EOSINOPHILS # (AUTO) 0.1 K/uL (0.0-0.4); EOSINOPHILS % (AUTO) 0.7 % (0.0-4.0); HEMATOCRIT 41.5 % (36-48); HEMOGLOBIN 14.2 g/dL (12.0-16.0); LYMPHOCYTES # (AUTO) 1.7 K/uL (1.0-5.5); LYMPHOCYTES % (AUTO) 15.9 % (20.5-51.5); MEAN CORPUSCULAR HEMOGLOBIN 29 pg (27-31); MEAN CORPUSCULAR HGB CONC 34 % (32-36); MEAN CORPUSCULAR VOLUME 85 fL (79.0-98.0); MONOCYTES # (AUTO) 1.3 K/uL (0.0-1.0); MONOCYTES % (AUTO) 12.3 % (1.7-9.3); NEUTROPHILS # (AUTO) 7.4 K/uL (1.8-7.7); NEUTROPHILS % (AUTO) 70.5 % (40.0-70.0); PLATELET COUNT (AUTO) 642 K/uL (130-430); RED BLOOD CELL COUNT(AUTO) 4.89 MIL/uL (4.2-6.2); RED CELL DISTRIBUTION WIDTH 13.9 % (9.0-15.0); WHITE BLOOD COUNT (AUTO) 10.5 K/uL (4.8-10.8)
[2020-05-02 10:35] LABS: ANION GAP 6 (5-15); CALCIUM 8.9 mg/dL (8.4-11.0); CHLORIDE 97 mmol/L (98-107); CREATININE 1.41 mg/dL (0.55-1.30); GLUCOSE 294 mg/dL (70-99); POTASSIUM 4.6 mmol/L (3.5-5.1); SODIUM SERUM 131 mmol/L (136-145); UREA NITROGEN, BLOOD 10 mg/dL (8-21)
[2020-05-02 10:51] LABS: ALANINE AMINOTRANSFERASE 56 U/L (12-78); ALBUMIN 2.5 g/dL (3.4-4.8); ASPARTATE AMINOTRANSFERASE 26 U/L (10-37); TOTAL BILIRUBIN 0.4 mg/dL (0.0-1.0)
[2020-05-02 16:21] VITALS: BP_SYST 111
[2020-05-02] MEDS: DEXAMETHASONE SOD PHOSPHATE 10 MG/ML VIAL IVP SCH (16:22)
[2020-05-02] MEDS: cefTRIAXone 1 GM in D5W 50 ML IV SCH (16:22)
[2020-05-02 20:00] VITALS: BP_SYST 125
[2020-05-02] MEDS ORDERED: ENOXAPARIN SODIUM 40 MG/0.4 ML SYRINGE SQ SCH (21:00)
[2020-05-02] MEDS ORDERED: ENOXAPARIN SODIUM 40 MG/0.4 ML SYRINGE ONE (21:39)
[2020-05-02] MEDS ORDERED: INSULIN Lispro 100 UNITS/ML VIAL (humaLOG) SUBCUT ONE (23:00)
[2020-05-03] VITALS: BP_SYST 157
[2020-05-03] MEDS: INSULIN LISPRO SLIDING SCALE 100 UNITS/ML VIAL (humaLOG) SUBCUT PRN ×4 (05:47→20:42)
[2020-05-03 08:30] VITALS: BP_SYST 133
[2020-05-03] MEDS: CHOLECALCIFEROL (VITAMIN D3) 5,000 UNIT TABLET PO SCH (09:07)
[2020-05-03] MEDS: ASCORBIC ACID 500 MG TABLET PO SCH (09:07)
[2020-05-03] MEDS: amLODIPine BESYLATE 10 MG TABLET PO SCH (09:25)
[2020-05-03 12:00] VITALS: BP_SYST 134
[2020-05-03] MEDS: DEXAMETHASONE SOD PHOSPHATE 10 MG/ML VIAL IVP SCH (16:00)
[2020-05-03 20:00] VITALS: BP_SYST 130
[2020-05-03] MEDS: ENOXAPARIN SODIUM 40 MG/0.4 ML SYRINGE SQ SCH (20:43)
[2020-05-04] VITALS: BP_SYST 139
[2020-05-04] MEDS: INSULIN LISPRO SLIDING SCALE 100 UNITS/ML VIAL (humaLOG) SUBCUT PRN ×4 (05:28→23:29)
[2020-05-04 08:00] VITALS: BP_SYST 148
[2020-05-04] MEDS: ENOXAPARIN SODIUM 40 MG/0.4 ML SYRINGE SQ SCH ×2 (08:14→21:29)
[2020-05-04] MEDS: ASCORBIC ACID 500 MG TABLET PO SCH (08:14)
[2020-05-04] MEDS: CHOLECALCIFEROL (VITAMIN D3) 5,000 UNIT TABLET PO SCH (08:14)
[2020-05-04] MEDS: amLODIPine BESYLATE 10 MG TABLET PO SCH (09:56)
[2020-05-04] MEDS ORDERED: APIX2.5T PO (11:57)
[2020-05-04 12:00] VITALS: BP_SYST 138
[2020-05-04 16:00] VITALS: BP_SYST 134
[2020-05-04] MEDS: DEXAMETHASONE SOD PHOSPHATE 10 MG/ML VIAL IVP SCH (17:09)
[2020-05-04 21:51] VITALS: BP_SYST 133
[2020-05-05 01:07] VITALS: BP_SYST 136
[2020-05-05] MEDS: INSULIN LISPRO SLIDING SCALE 100 UNITS/ML VIAL (humaLOG) SUBCUT PRN ×4 (06:25→20:30)
[2020-05-05 08:00] VITALS: BP_SYST 140
[2020-05-05] MEDS: ASCORBIC ACID 500 MG TABLET PO SCH (09:06)
[2020-05-05] MEDS: CHOLECALCIFEROL (VITAMIN D3) 5,000 UNIT TABLET PO SCH (09:06)
[2020-05-05] MEDS: ENOXAPARIN SODIUM 40 MG/0.4 ML SYRINGE SQ SCH ×2 (09:08→20:30)
[2020-05-05] MEDS: amLODIPine BESYLATE 10 MG TABLET PO SCH (09:55)
[2020-05-05 16:00] VITALS: BP_SYST 109
[2020-05-05] MEDS: DEXAMETHASONE SOD PHOSPHATE 10 MG/ML VIAL IVP SCH (16:21)
[2020-05-05 20:30] VITALS: BP_SYST 135
== END 2020-05-05 21:25 | disposition home or self-care (01) | DRG 871 ==
LOC: SED 10:08 → STU 14:18
PROVIDERS: ADMIT Internal Medicine; ATTEND Internal Medicine
PROC: XW033E5 Introduction of Remdesivir Anti-infective into Peripheral Vein, Percutaneous Approach, New Technology Group 5 (ICD-10-PCS; 2020-04-28)
PROC: XW13325 Transfusion of Convalescent Plasma (Nonautologous) into Peripheral Vein, Percutaneous Approach, New Technology Group 5 (ICD-10-PCS; principal; 2020-04-29)
DX: A41.9 Sepsis, unspecified organism (principal); U07.1 COVID-19; J96.21 Acute and chronic respiratory failure with hypoxia; J12.82 Pneumonia due to coronavirus disease 2019; N17.9 Acute kidney failure, unspecified; E87.1 Hypo-osmolality and hyponatremia; N39.0 Urinary tract infection, site not specified; I12.9 Hypertensive chronic kidney disease with stage 1 through stage 4 chronic kidney disease, or unspecified chronic kidney disease; E87.6 Hypokalemia; E66.01 Morbid (severe) obesity due to excess calories; B96.1 Klebsiella pneumoniae [K. pneumoniae] as the cause of diseases classified elsewhere; E11.22 Type 2 diabetes mellitus with diabetic chronic kidney disease; Z68.36 Body mass index [BMI] 36.0-36.9, adult
CPT/HCPCS: 36415; 36600; 71045; 80053; 81000-TC; 82550-TC; 82553-TC; 82728; 82803-TC; 82962; 83605; 83615-TC; 83735-TC; 83880; 84100-TC; 84484; 85025; 85379; 85384-TC; 85610-TC; 85730-TC; 86140; 86886; 86900; 86901; 87040-TC; 87086; 93005; 96365; 96368; 96372; 96375; 97163; 99291; G0378; J0456; J0696; J1100; J1650; J7040; J7050; J7060; P9017